=== PATIENT | male | born 1975 | race Caucasian/White ===

== ENCOUNTER 2016-04-15 20:12 | Emergency (ER) | payer SELFPAY ==
--- NOTE | 2016-04-16 00:19 | ER Document Report ---
ED Oral Problem - General Mode of Arrival: Ambulatory Information source: Patient TRAVEL OUTSIDE OF THE [place] IN LAST 30 DAYS: No - HPI Patient complains to provider of: Toothache Associated symptoms: Other - See above - General Chief Complaint: Toothache Stated Complaint: toothache Notes: Patient is a 41 year old male who presents to the emergency department complaining of a lower right toothache. Patient reports he has had pain for the past 3 days and that it was so bad today he had to leave work. Patient states that he has a history of bad teeth. Patient reports he has had insurance coverage issues and has been unable to see his dentist. Patient reports he is not currently on any medications. (ANA BRYANT) - Related Data Allergies/Adverse Reactions: No Known Allergies Allergy (Unverified 04/15/16 21:14) Past Medical History - General Information source: Patient - Social History Smoking Status: Former Smoker Chew tobacco use (# tins/day): No Frequency of alcohol use: Occasional Drug Abuse: None Family History: Reviewed & Not Pertinent Patient has suicidal ideation: No Patient has homicidal ideation: No Past Surgical History: Reports: Hx Orthopedic Surgery - finger surgery - Immunizations Immunizations up to date: Yes Hx Diphtheria, Pertussis, Tetanus Vaccination: Yes - within 5 years per patient Review of Systems - Review of Systems Constitutional: No symptoms reported EENT: See HPI, Dental problem Cardiovascular: No symptoms reported Respiratory: No symptoms reported Gastrointestinal: No symptoms reported Genitourinary: No symptoms reported Male Genitourinary: No symptoms reported Musculoskeletal: No symptoms reported Skin: No symptoms reported Hematologic/Lymphatic: No symptoms reported Neurological/Psychological: No symptoms reported -: Yes All other systems reviewed and negative Physical Exam - Vital signs Interpretation: Normal - General General appearance: Appears well, Alert - HEENT Head: Normocephalic, Atraumatic Ears: Normal External canal: Normal Tympanic membrane: Normal Mouth/Lips: Other - All dentition rotten, no abscess Pharynx: Normal Neck: Normal - Respiratory Respiratory status: No respiratory distress Chest status: Nontender Breath sounds: Normal Chest palpation: Normal - Cardiovascular Rhythm: Regular Heart sounds: Normal auscultation Murmur: No - Abdominal Inspection: Normal Distension: No distension Bowel sounds: Normal Tenderness: Nontender Organomegaly: No organomegaly - Extremities General upper extremity: Normal inspection General lower extremity: Normal inspection - Neurological Neuro grossly intact: Yes Cognition: Normal Orientation: AAOx4 [place] Coma Scale Eye Opening: Spontaneous Gerard Coma Scale Verbal: Oriented [place] Coma Scale Motor: Obeys Commands Gerard Coma Scale Total: 15 Speech: Normal - Psychological Associated symptoms: Normal affect, Normal mood - Skin Skin Temperature: Warm Skin Moisture: Dry Skin Color: Normal Course - Re-evaluation Re-evalutation: 04/16/16 00:31 I personally performed the services described in the documentation, reviewed and edited the documentation which was dictated to my scribe in my presence, and it accurately records my words and actions. Patient seen and evaluated in the emergency department complaining of generalized tooth pain patient has all of his teeth are completely right now he needs to have them removed and dentures is been going on for years multiple ED visits when they become painful he does not see a primary care physician for this. He has diffuse dental decay but no associated. Typical abscess swelling trismus stridor or drooling. I gave him a pain pill here and I'm starting him on antibiotics. He needs to see the clinic or physician dental physician for chronic ongoing management of chronic pain related to severe tooth decay. Return to the emergency from for increasing worsening or new symptoms (HEAVEN PEDROZA) - Vital Signs Vital signs: Temp Pulse Resp BP Pulse Ox 97.7 F 71 16 121/81 94 04/16/16 01:06 04/16/16 01:06 04/16/16 01:06 04/16/16 01:06 04/16/16 01:06 (HEAVEN PEDROZA) Discharge - Discharge Clinical Impression: widespread dental decay chronic Condition: Stable Disposition: HOME, SELF-CARE Instructions: [facility], Toothache ([facility]), Clindamycin ([facility]) Prescriptions: Clindamycin HCl 300 mg PO BID #14 capsule Scribe Documentation - Bennieiberika acting as scribe for :: Zbigniew Written by Teodora:: teodora Reyes, 04/16/16, [id number]
[2016-04-16] MEDS ORDERED: CLINDAMYCIN HCL 150 MG CAPSULE PO ONE (00:31)
[2016-04-16] MEDS ORDERED: HYDROCODONE/ACETAMINOPHEN 5-325 MG TABLET PO ONE (00:31)
[2016-04-16 01:10] VITALS: BP 121/81
== END 2016-04-16 01:10 | disposition home or self-care (01) ==
LOC: ER 20:12
DX: K02.9 Dental caries, unspecified (principal); G89.29 Other chronic pain; K08.89 Other specified disorders of teeth and supporting structures; Z87.891 Personal history of nicotine dependence
CPT/HCPCS: 99282

== ENCOUNTER 2018-05-22 19:40 | Emergency (ER) | payer OTHER ==
[2018-05-22 20:02] VITALS: BP 147/95
[2018-05-22] MEDS ORDERED: KETOROLAC TROMETHAMINE 60 MG/2 ML SDV IM ONE (22:00)
--- NOTE | 2018-05-22 22:18 | ER Document Report ---
HPI - HPI Time Seen by Provider: 05/22/18 21:49 Pain Level: 4 Notes: Patient is an otherwise healthy 43-year-old male presenting to the emergency department with chief complaint of left shoulder pain. 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 Patient reports pain is in the front of the shoulder, reports limited range of motion intermittently. Denies any previous injury to this area. - MUSCULOSKELETAL Musculoskeletal: REPORTS: Extremity pain - shoulder Past Medical History - General Information source: Patient - Social History Smoking Status: Current Every Day Smoker Frequency of alcohol use: None Lives with: Alone Family History: Reviewed & Not Pertinent Patient has suicidal ideation: No Patient has homicidal ideation: No - Medical History Medical History: Negative Renal/ Medical History: Denies: Hx Peritoneal Dialysis Past Surgical History: Reports: Hx Orthopedic Surgery - finger surgery - Immunizations Immunizations up to date: Yes Hx Diphtheria, Pertussis, Tetanus Vaccination: Yes - within 5 years per patient Vertical Provider Document - CONSTITUTIONAL Notes: PHYSICAL EXAMINATION: GENERAL: Well-appearing, well-nourished and in no acute distress. HEAD: Atraumatic, normocephalic. EYES: Pupils equal round extraocular movements intact, conjunctiva are normal. ENT: Nares patent NECK: Normal range of motion LUNGS: No respiratory distress Musculoskeletal: Limited range of motion to left shoulder, tenderness to palpation to anterior shoulder, normal motor and sensation distal to area of injury, strong radial pulse, Cap refill less than 3 seconds. NEUROLOGICAL: Normal speech, normal gait. PSYCH: Normal mood, normal affect. SKIN: Warm, Dry, normal turgor, no rashes or lesions noted. - INFECTION CONTROL TRAVEL OUTSIDE OF THE [place] IN LAST 30 DAYS: No Course - Re-evaluation Re-evalutation: 05/22/18 22:54 X-ray shows mild degenerative changes of the AC joint, no fracture or dislocation noted. This was discussed with the patient. If pain persists patient will follow up with either his primary care provider or orthopedics for further follow-up. I did explain to the patient that we are unable to rule out a internal shoulder injury such as a rotator cuff tear with plain films. He verbalizes understanding of same. Discussed shoulder strengthening exercises. - Vital Signs Vital signs: Temp Pulse Resp BP Pulse Ox 97.9 F 72 16 147/95 H 99 05/22/18 20:01 05/22/18 20:01 05/22/18 20:01 05/22/18 20:01 05/22/18 20:01 Discharge - Discharge Clinical Impression: Shoulder injury Qualifiers: Encounter type: initial encounter Laterality: left Qualified Code(s): S49.92XA - Unspecified injury of left shoulder and upper arm, initial encounter Condition: Stable Disposition: HOME, SELF-CARE Additional Instructions: Shoulder Injury You have injured your shoulder. This usually results from stretching or tearing of the tendons during trauma. Time and protection are required in order to heal properly. Many injuries are quite disabling, and should be taken seriously. Initial treatment includes cold packs and a sling to rest the shoulder. The physician has assessed the seriousness of your injury, and has outlined a treatment plan. Understand that this treatment may change, depending on how you progress. If a re-examination was recommended, it is important that you follow up as instructed. Some shoulder injuries (such as partial tear of the rotator cuff) are only suspected after you've failed to improve. Call us if there's severe pain, numbness, or loss of function. Exercise Program for the Shoulder Since the shoulder moves in so many directions, the joint attachment is weak. Muscles provide most of the stability to the shoulder. You must exercise your shoulder to prevent painful instability or stiffening. PASSIVE - These may be begun within a few days of the injury. While standing, lean forward, allowing the arm to hang down towards the floor. Move the arm in small circles while slowly twisting your chest towards and away from the hanging arm. Do this for one minute. ACTIVE - These may be performed when the doctor gives permission. Begin with the arms at the sides. Raise the arms forward (shoulder's width apart) until they reach shoulder level. Then slowly swing both arms back until they are aiming straight out away from each other. Then bring them forward again, and finally, lower them to your sides. Repeat 20 to 30 times. As you improve, put weights in your hands for the exercise. Start with one pound, and work up to 10 pounds. Never use more than is comfortable. Athletes may work up to 30 pounds. Please take ibuprofen 600 mg every 6 hours for your pain. The x-rays today were negative for any abnormality of the bones. This does not rule out an internal shoulder injury such as a rotator cuff injury. If your pain continues please follow-up with either primary care or orthopedics. They may want to consider doing physical therapy or an MRI. Please do the shoulder exercising program as outlined above. Forms: Return to Work
--- NOTE | 2018-05-22 22:32 | RADIOLOGY REPORT (SQ) ---
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 NUMBER OF VIEWS: 3 TECHNIQUE: 3 view left shoulder LIMITATIONS: None. FINDINGS: Negative for fracture or dislocation. Mild degenerative changes of the acromioclavicular joint. Soft tissues are unremarkable IMPRESSION: Mild degenerative change AC joint copyright 2010 [employer]- All Rights Reserved
== END 2018-05-22 23:16 | disposition home or self-care (01) ==
LOC: ER 19:40
DX: S49.92XA Unspecified injury of left shoulder and upper arm, initial encounter (principal); M25.512 Pain in left shoulder; X58.XXXA Exposure to other specified factors, initial encounter; F17.200 Nicotine dependence, unspecified, uncomplicated
CPT/HCPCS: 99283; 73030; J1885

== ENCOUNTER 2019-05-09 14:14 | Emergency (ER) | payer SELFPAY ==
[2019-05-09] MEDS ORDERED: IBUPROFEN 600 MG TABLET PO ONE (15:41)
[2019-05-09] MEDS ORDERED: OXYCODONE-ACETAMINOPHEN 5-325 MG TABLET PO ONE (15:41)
--- NOTE | 2019-05-09 15:41 | ER Document Report ---
HPI - HPI Time Seen by Provider: 05/09/19 15:29 Pain Level: 4 Notes: 44-year-old male patient presenting to the emergency department chief complaint of left foot pain after he states he slipped off of the porch 2 to 3 days ago. He reports he slipped down approximately 3 steps. He states he has been using Aspercreme to the area however it continues to become increasingly painful. - MUSCULOSKELETAL Musculoskeletal: REPORTS: Extremity pain - Left foot Past Medical History - General Information source: Patient - Social History Smoking Status: Current Every Day Smoker Frequency of alcohol use: None Drug Abuse: None Family History: Reviewed & Not Pertinent Patient has suicidal ideation: No Patient has homicidal ideation: No - Medical History Medical History: Negative Renal/ Medical History: Denies: Hx Peritoneal Dialysis Past Surgical History: Reports: Hx Orthopedic Surgery - finger surgery - Immunizations Immunizations up to date: Yes Hx Diphtheria, Pertussis, Tetanus Vaccination: Yes - within 5 years per patient Vertical Provider Document - CONSTITUTIONAL Notes: PHYSICAL EXAMINATION: GENERAL: Well-appearing, well-nourished and in no acute distress. HEAD: Atraumatic, normocephalic. EYES: Pupils equal round extraocular movements intact, conjunctiva are normal. ENT: Nares patent NECK: Normal range of motion LUNGS: No respiratory distress Musculoskeletal: Normal range of motion, mild swelling with ecchymosis noted to left foot, strong dorsalis pedis pulse, normal cap refill. Normal motor and sensation distal to injury. NEUROLOGICAL: Normal speech, normal gait. PSYCH: Normal mood, normal affect. SKIN: Warm, Dry, normal turgor, no rashes or lesions noted. - INFECTION CONTROL TRAVEL OUTSIDE OF THE [place] IN LAST 30 DAYS: No Course - Re-evaluation Re-evalutation: X-ray was negative for any acute findings. Likely contusion. Patient e ncouraged to ice, elevate, take [id number] ibuprofen. Patient will follow-up with orthopedics if not improving over the next week. - Vital Signs Vital signs: Temp Pulse Resp BP Pulse Ox 98.0 F 85 16 154/115 H 100 05/09/19 14:18 05/09/19 14:18 05/09/19 14:18 05/09/19 14:18 05/09/19 14:18 Procedures - Immobilization Left foot Pre-Proc Neuro Vasc Exam: Normal Immobilizer type: Tate wrap Performed by: PCT Post-Proc Neuro Vasc Exam: Normal Discharge - Discharge Clinical Impression: Contusion of left foot Qualifiers: Encounter type: initial encounter Qualified Code(s): S90.32XA - Contusion of left foot, initial encounter Condition: Stable Disposition: HOME, SELF-CARE Additional Instructions: Contusion Your injury has resulted in a contusion -- a crushing of the deep tissues. No injury to important structures was detected during the physician's exam. Contusions vary in the amount of pain they cause, and in the length of time required for healing. Typically, the area will become bruised, and will remain painful to touch for two or three weeks. However, most patients are back to working and playing within a few days. After the initial period of rest and cold-packs, your symptoms (together with the doctor's recommendations) will determine how rapidly you can get back to full activity. Usually this means "do what feels okay, but don't do things that hurt." If re-examination was recommended, it's important to follow up as instructed. Call the doctor or return any time if pain increases, if swelling becomes severe, if you develop numbness or weakness in an injured extremity, or if any other alarming symptoms occur. Ice & Elevation Apply ice packs frequently against the painful area. Many different schedules are recommended, such as "20 minutes on, 20 minutes off" or "one hour ice, two hours rest." If you need to work, you may need to go longer between ice treatments. You should plan to have the area ice packed AT LEAST one-fourth of the time. The ice should be applied over the wrap, tape, or splint, or over a layer of cloth -- not directly against the skin. Some ice bags have a built-in cloth and can be put directly on the skin. Your injured part should be elevated as much as possible over the next 48 hours. Try to keep the injury above the level of the heart. Avoid use of the injured area. Elevation and rest will decrease the swelling. Ibuprofen Ibuprofen is an excellent, safe drug for pain control. In addition, it has potent antiinflammatory effects which are beneficial, especially in the treatment of injuries, arthritis, or tendonitis. It's best to take ibuprofen with food. Persons with ulcer disease or allergy to aspirin should notify their physician of this before taking ibuprofen. Take the medication exactly as prescribed. Don't take additional doses unless instructed to do so by your doctor. If you develop wheezing, shortness of breath, hives, faintness, stomach pain, vomiting, or dark black stools, return for re-evaluation at once. The x-rays were negative for any fracture or dislocation. Please take ibuprofen [id number] as directed to help with pain and inflammation. Use the narcotic pain medication for severe pain. If pain not improved over the next week, please follow-up with orthopedics. Prescriptions: Hydrocodone/Acetaminophen [[place] 5-325 mg Tablet] 1 tab PO Q4H #12 tablet Forms: Return to Work Referrals: AMBAR ZENG JR, DO [ACTIVE PROVISIONAL STAFF] - Follow up as needed BENTON IBRAHIM MD [ACTIVE STAFF] - Follow up as needed
--- NOTE | 2019-05-09 16:25 | RADIOLOGY REPORT (SQ) ---
EXAM DESCRIPTION: FOOT LEFT COMPLETE COMPLETED DATE/TIME: 05/09/2019 4:02 pm REASON FOR STUDY: fall 4 days ago COMPARISON: None. NUMBER OF VIEWS: Three views. TECHNIQUE: AP, lateral and oblique radiographic images acquired of the left foot. LIMITATIONS: None. FINDINGS: MINERALIZATION: Normal. BONES: No acute fracture or dislocation. No worrisome bone lesions. JOINTS: No effusions. SOFT TISSUES: No soft tissue swelling. No foreign body. OTHER: No other significant finding. IMPRESSION: NEGATIVE STUDY OF THE LEFT FOOT. NO RADIOGRAPHIC EVIDENCE OF ACUTE INJURY. TECHNICAL DOCUMENTATION: JOB ID: [id number] [employer]- All Rights Reserved Reading location - IP/workstation name: [email or web address]
[2019-05-09 17:26] VITALS: BP 142/93
== END 2019-05-09 17:28 | disposition home or self-care (01) ==
LOC: ER 14:14
DX: S90.32XA Contusion of left foot, initial encounter (principal); M79.672 Pain in left foot; W01.0XXA Fall on same level from slipping, tripping and stumbling without subsequent striking against object, initial encounter; F17.200 Nicotine dependence, unspecified, uncomplicated
CPT/HCPCS: 99283